=== PATIENT | female | born 1960 | race Caucasian/White ===

== ENCOUNTER 2017-05-01 05:08 | Inpatient (IN) | END 2017-05-03 12:30 | disposition home or self-care (01) | DRG 445 | DX: K80.50 Calculus of bile duct without cholangitis or cholecystitis without obstruction (principal); E87.1 Hypo-osmolality and hyponatremia; Z94.0 Kidney transplant status; I10 Essential (primary) hypertension; N39.0 Urinary tract infection, site not specified; B96.20 Unspecified Escherichia coli [E. coli] as the cause of diseases classified elsewhere; Z92.25 Personal history of immunosuppression therapy; Z79.899 Other long term (current) drug therapy; Z99.2 Dependence on renal dialysis ==

== ENCOUNTER 2017-05-20 20:49 | Emergency (ER) | payer SELFPAY ==
[~2017-05-20] VITALS: Ht 149.9 cm; Wt 68.2 kg
[~2017-05-20 20:49] MED LIST: ALEN70TA30 PO; AMLO5TAB4 PO; CEPH-443 PO; CINA60TA PO; FAMO20TA18 PO; HYDR-906 PO; MYCO160 PO; PHOS250T2 PO; PRED5 PO; TACR1CAP26 PO
[2017-05-20 20:54] VITALS: Ht 149.9 cm; Wt 68.2 kg
== END 2017-05-20 21:56 | disposition left against medical advice (07) ==
LOC: E/R 20:49
DX: Z53.21 Procedure and treatment not carried out due to patient leaving prior to being seen by health care provider (principal)